=== PATIENT | female | born 1980 | race Hispanic/Latino ===

== ENCOUNTER 2018-12-12 08:35 | Outpatient (CLI) | payer BC, MEDICAID ==
--- NOTE | 2018-12-12 10:55 | ULT ---
OB ULTRASOUND: 12/12/18 HISTORY: anatomy. FINDINGS: A single live intrauterine gestation is seen with measurements corresponding to an estimated gestati onal age of 20 weeks, 2 days and MIGUEL at 04/29/19. The estimated weight measure 345 grams or 12 oz. This corresponds to the 11th percentile by Hadlock criteria. measurements are as follows: BPD 4.75 cm 20 weeks, 3 days HC 17.05 cm 19 weeks, 5 days AC 15.43 cm 20 weeks, 5 days FL 3.23 cm 20 weeks, 1 day heart rate measures 144 beats per minute. The placenta is anteriorly located without evidence o f placenta previa. NANNETTE measures 12.4 cm. Cervical length measures 4.9 cm. IMPRESSION: Single live IUP of 20 weeks, 2 days estimated gestational age and MIGUEL at 04/29/19. POS: ADELE
== END 2018-12-12 08:36 | disposition home or self-care (01) ==
LOC: BICULT 08:35
PROVIDERS: ATTEND Family Medicine
DX: O09.522 Supervision of elderly multigravida, second trimester (principal); Z3A.20 20 weeks gestation of pregnancy
CPT/HCPCS: 76805

== ENCOUNTER 2019-04-16 19:45 | Inpatient (IN) | payer BC, OTHER ==
[~2019-04-16 19:45] MED LIST: ePHEDrine/0.9% NaCl/PF SYRINGE 50 mg/10 ml ONE
[2019-04-16] MEDS ORDERED: HYDROcodone/Acetaminophen 5/325 mg Tablet PO PRN (21:20)
[2019-04-16] MEDS ORDERED: Promethazine HCl 25 MG/ML VIAL IM PRN (21:20)
[2019-04-16] MEDS ORDERED: Butorphanol Tartrate 1 MG/ML VIAL SLOW IVP PRN (21:20)
[2019-04-16] MEDS ORDERED: Methylergonovine 0.2 MG/ML VIAL IM PRN (21:20)
[2019-04-16] MEDS ORDERED: Diphenoxylate HCl/Atropine Tablet PO PRN (21:20)
[2019-04-16] MEDS ORDERED: hydrALAZINE 20 MG/ML VIAL SLOW IVP PRN (21:20)
[2019-04-16] MEDS ORDERED: Ondansetron PF 4 MG/2 ML Vial IVP PRN (21:20)
[2019-04-16] MEDS ORDERED: Ibuprofen 800 MG TAB PO PRN (21:20)
[2019-04-16] MEDS ORDERED: NS w/ Oxytocin 10 units 500 ML IV SCH ×2 (21:20)
[2019-04-16] MEDS ORDERED: Carboprost 250 MCG/ML AMP IM PRN (21:20)
[2019-04-16] MEDS ORDERED: Lidocaine 1% (PF) 30 ML VIAL SC PRN (21:20)
[2019-04-16] MEDS ORDERED: Misoprostol 200 MCG TAB PR PRN (21:20)
[2019-04-16 21:28] VITALS: BMI 31.2
[2019-04-16 21:55] LABS: Hemoglobin 11.8 g/dL (12.0-16.0); Mean Corpuscular HGB CONC 34.9 g/dL (32.0-36.0); Mean Corpuscular Hemoglobin 30.8 pg (27.0-31.0); Mean Corpuscular Volume 88.3 fL (78.0-98.0); Mean Platelet Volume 8.8 fL (7.4-10.4); Platelet Count 296 thou/uL (130-400); RBC Distribution Width 16.1 % (11.5-14.5); Red Blood Cell (RBC) Count 3.82 mill/uL (4.20-5.40); White Blood Cell (WBC) Count 11.8 thou/uL (4.8-10.8)
[2019-04-16] MEDS: Lactated Ringer's 1,000 ML IV SCH (22:00)
[2019-04-16] MEDS: Misoprostol 100 MCG TAB PO SCH (22:05)
[2019-04-16 22:30] LABS: Syphilis Antibody Nonreactive (Nonreactive); Syphilis Antibody Index 0.03 S/CO (<1.00 Non-Reactive)
[2019-04-16 22:31] LABS: HBSAg Index 0.16 S/CO (0-0.99); Hep B Surf Ag Non-Reactive S/CO (NonReactive)
[2019-04-16] MEDS ORDERED: Penicillin G Potassium 5 MILL.UNITS VIAL ONE (23:52)
[2019-04-16] MEDS ORDERED: Penicillin G Potassium 5 MILL.UNITS in Sodium Chloride 0.9% 100 ML IVPB SCH (23:59)
[2019-04-17] MEDS: Penicillin G 2.5 MILL.units 50 ML IVPB SCH ×3 (04:18→16:12)
[2019-04-17] MEDS: Misoprostol 100 MCG TAB PO SCH ×2 (04:49→16:11)
[2019-04-17] MEDS ORDERED: Fentanyl 4 mcg/Bup 0.1% Cadd 100 ML ONE (07:20)
[2019-04-17] MEDS: Lactated Ringer's 1,000 ML IV SCH ×2 (08:00→09:58)
[2019-04-17] MEDS ORDERED: Ondansetron PF 4 MG/2 ML Vial IVP PRN ×3 (08:41→15:17)
[2019-04-17] MEDS ORDERED: diphenhydrAMINE 50 MG/ML VIAL IVP PRN (08:41)
[2019-04-17] MEDS ORDERED: Promethazine HCl 25 MG/ML VIAL IM PRN ×2 (08:41→15:17)
[2019-04-17] MEDS ORDERED: Lactated Ringer's 500 ML IV PRN (08:41)
[2019-04-17] MEDS ORDERED: Naloxone HCl 0.4 mg/ml Vial IVP PRN ×2 (08:41)
[2019-04-17] MEDS ORDERED: ePHEDrine/0.9% NaCl/PF SYRINGE 50 mg/10 ml SLOW IVP PRN (08:41)
[2019-04-17] MEDS ORDERED: Acetaminophen 325 MG TAB PO PRN (08:41)
[2019-04-17] MEDS ORDERED: Communication Order-Pharmacy FS SCH (08:45)
[2019-04-17] MEDS ORDERED: Fentanyl 4 mcg/Bupivacaine 0.1% Cassette 100 ML EPIDURAL SCH (08:45)
[2019-04-17] MEDS ORDERED: Misoprostol 200 MCG TAB ONE (11:01)
[2019-04-17] MEDS: NS / Oxytocin 40 units/1000ml 1,000 ML IV PRN ×2 (12:30→15:22)
[2019-04-17] MEDS ORDERED: hydrALAZINE 20 MG/ML VIAL SLOW IVP PRN ×2 (12:48→15:17)
[2019-04-17] MEDS ORDERED: Milk Of Magnesia 30 ML UDCUP PO PRN ×2 (12:48→15:17)
[2019-04-17] MEDS ORDERED: Benzocaine-Menthol 82.5 ML CAN TOP PRN ×2 (12:48→15:17)
[2019-04-17] MEDS ORDERED: Bisacodyl 10 MG SUPP PR PRN ×2 (12:48→15:17)
[2019-04-17] MEDS ORDERED: HYDROcodone/Acetaminophen 5/325 mg Tablet PO PRN ×3 (12:48→15:17)
[2019-04-17] MEDS ORDERED: Lanolin Ointment 7 GM TUBE TOP PRN (12:48)
[2019-04-17] MEDS ORDERED: diphenhydrAMINE 25 MG CAP PO PRN ×2 (12:48→15:17)
[2019-04-17] MEDS ORDERED: NS / Oxytocin 40 units/1000ml 1,000 ML IV SCH ×2 (13:00→15:17)
[2019-04-17] MEDS ORDERED: Ibuprofen 800 MG TAB PO SCH (14:00)
[2019-04-17] MEDS ORDERED: Preparation H Ointment 28 GM TUBE PR PRN (15:17)
[2019-04-17] MEDS ORDERED: NS / Oxytocin 40 units/1000ml 1,000 ML ONE (15:19)
[2019-04-17] MEDS: HYDROcodone/Acetaminophen 5/325 mg Tablet PO PRN (16:03)
[2019-04-17] MEDS: Ferrous Sulfate 325 MG TAB PO SCH (16:42)
[2019-04-17] MEDS ORDERED: Ferrous Sulfate 325 MG TAB PO SCH (17:00)
[2019-04-17] MEDS ORDERED: Docusate Calcium (SURFAK) 240 MG CAP PO SCH (21:00)
[2019-04-17] MEDS: Docusate Calcium (SURFAK) 240 MG CAP PO SCH (21:59)
[2019-04-17] MEDS: Ibuprofen 800 MG TAB PO SCH (21:59)
[2019-04-18] MEDS ORDERED: Sodium Chloride 0.9% 10 ML ONE (00:16)
[2019-04-18] MEDS: HYDROcodone/Acetaminophen 5/325 mg Tablet PO PRN (00:18)
[2019-04-18] MEDS: Ibuprofen 800 MG TAB PO SCH ×2 (05:43→14:42)
[2019-04-18] MEDS ORDERED: Prenatal Vitamin 1 TAB PO SCH ×2 (09:00)
[2019-04-18] MEDS: Ferrous Sulfate 325 MG TAB PO SCH (09:39)
[2019-04-18] MEDS: Docusate Calcium (SURFAK) 240 MG CAP PO SCH (09:39)
[2019-04-18 11:40] VITALS: BP 98/59; TEMP 97.7
[2019-04-18] MEDS ORDERED: Adacel (T-DAP) 0.5 ML SYRINGE IM ONE (12:48)
== END 2019-04-18 14:50 | disposition home or self-care (01) | DRG 807 ==
LOC: L&D 20:02 → 3SW 04-17 15:32
PROVIDERS: ADMIT Family Medicine; ATTEND Family Medicine
PROC: 10E0XZZ Delivery of Products of Conception, External Approach (ICD-10-PCS; principal; 2019-04-17)
PROC: 3E0P7VZ Introduction of Hormone into Female Reproductive, Via Natural or Artificial Opening (ICD-10-PCS; 2019-04-17)
PROC: 10907ZC Drainage of Amniotic Fluid, Therapeutic from Products of Conception, Via Natural or Artificial Opening (ICD-10-PCS; 2019-04-17)
PROC: 0HQ9XZZ Repair Perineum Skin, External Approach (ICD-10-PCS; 2019-04-17)
DX: O99.824 Streptococcus B carrier state complicating childbirth (principal); Z37.0 Single live birth; Z3A.39 39 weeks gestation of pregnancy; O70.1 Second degree perineal laceration during delivery; O62.2 Other uterine inertia; O69.1XX0 Labor and delivery complicated by cord around neck, with compression, not applicable or unspecified
CPT/HCPCS: 36415; 51702; 82805; 85027; 86780; 86850; 86900; 86901; 87340; J2001; J2210; J2405; J2540

== ENCOUNTER 2021-12-31 12:27 | Outpatient (CLI) | payer BC | END 2021-12-31 12:28 | disposition home or self-care (01) | LOC: BICMAMMO 12:27 | PROVIDERS: ATTEND Family Medicine | DX: Z12.31 Encounter for screening mammogram for malignant neoplasm of breast (principal) | CPT/HCPCS: 77063; 77067 ==